=== PATIENT | female | born 1960 | race Caucasian/White ===

== ENCOUNTER 2025-02-03 09:45 | Emergency (ER) | payer MEDICAID, OTHER ==
[~2025-02-03] VITALS: Ht 152.4 cm; Wt 73.0 kg
[2025-02-03 10:00] VITALS: O2SAT 99
[2025-02-03 10:04] VITALS: BP 145/70; PULSE 81; RESP 14; TEMP 36.8; O2SAT 100
[2025-02-03] MEDS: TETRACAINE 0.5% OPHTH DROPS 4ML RIGHTEYE ONE (11:52)
[2025-02-03] MEDS: FLUORESCEIN SODIUM 1MG/STRIP RIGHTEYE ONE (11:52)
[2025-02-03] MEDS ORDERED: TROPICAMIDE 1% OPHTH DROPS 15ML RIGHTEYE ONE (12:00)
== END 2025-02-03 13:43 | disposition left against medical advice (07) ==
LOC: ER 09:45
DX: H57.11 Ocular pain, right eye (principal); E11.9 Type 2 diabetes mellitus without complications; Z98.890 Other specified postprocedural states; Z86.73 Personal history of transient ischemic attack (TIA), and cerebral infarction without residual deficits
CPT/HCPCS: 99283